=== PATIENT | female | born 1955 | race Caucasian/White ===

== ENCOUNTER 2017-03-19 16:03 | Inpatient (IN) | payer BC ==
[~2017-03-19] VITALS: Ht 180.3 cm; Wt 117.9 kg
[2017-03-19 17:45] LABS: PLATELET COUNT 291 x10^3mcL (130-400)
[2017-03-19 17:48] LABS: CALCIUM 8.4 mg/dL (8.5-10.1); CARBON DIOXIDE 25.5 mmol/L (21-32); CHLORIDE SERUM 108 mmol/L (98-107); CREATININE SERUM 0.9 mg/dL (0.6-1.0); GFR1 > 60 mL/min; GLUCOSE SERUM 87 mg/dL (74-106); POTASSIUM SERUM 4.6 mmol/L (3.5-5.1); SODIUM SERUM 141 mmol/L (136-145)
[2017-03-19 17:52] LABS: ALKALINE PHOSPHATASE 220 U/L (46-116); ALT/SGPT 15 U/L (14-59); AST/SGOT 16 U/L (15-37); BILIRUBIN TOTAL 0.2 mg/dL (0.20-1.00); TOTAL PROTEIN, SERUM 7.1 g/dL (6.4-8.2)
[2017-03-19 17:53] LABS: ALBUMIN 2.8 g/dL (3.4-5.0)
[2017-03-19 17:59] LABS: RED CELL DISTRIBUTION WIDTH 22.8 % (11.5-14.5)
[2017-03-19 18:53] LABS: BAND NEUTROPHIL 2 % (0-10); MONOCYTE 10 % (0-7); SEGMENTED NEUTROPHILS 58 % (37-75)
[2017-03-19 18:56] LABS: ovalocyte/elliptocyte 1+; rbc morphology (normal/abnorm) ABNORMAL (NORMAL)
[2017-03-19 18:57] LABS: PLATELET MORPHOLOGY PLATELETS NORMAL
[2017-03-19 19:23] LABS: T3 TOTAL 0.83 ng/mL
[2017-03-19 19:26] LABS: MAGNESIUM 2.2 mg/dL (1.8-2.4)
[2017-03-19 19:28] LABS: FREE T4 0.85 ng/dL (0.76-1.46); FREE THYROXINE INDEX 2.2 ug/dL (1.4-4.5); T4(THYROXINE) 6.6 ug/dL (4.7-13.3)
[2017-03-19 19:33] LABS: CHOLESTEROL/HDL RATIO 2.9
[2017-03-19 19:41] VITALS: BP 120/76
[2017-03-20 03:54] LABS: BASOPHIL % 1.5 % (0-2); PLATELET COUNT 261 x10^3mcL (130-400)
[2017-03-20 03:59] LABS: RED CELL DISTRIBUTION WIDTH 21.3 % (11.5-14.5)
[2017-03-20 04:17] LABS: CALCIUM 7.8 mg/dL (8.5-10.1); CARBON DIOXIDE 28.9 mmol/L (21-32); CREATININE SERUM 1.1 mg/dL (0.6-1.0); POTASSIUM SERUM 4.5 mmol/L (3.5-5.1)
[2017-03-20 05:31] VITALS: BP 80/35
[2017-03-20 06:06] VITALS: BP 81/40
[2017-03-20 06:45] LABS: microscopic required? NO
[2017-03-20 09:32] VITALS: BP 130/48
[2017-03-20 09:43] LABS: urine erythrocyte NEGATIVE (NEGATIVE)
[2017-03-20 13:35] VITALS: BP 113/65
[2017-03-20 17:12] VITALS: BP 106/46
[2017-03-20 21:31] VITALS: BP 104/41
[2017-03-21 05:33] VITALS: BP 103/50
[2017-03-21 06:11] LABS: BASOPHIL % 0.3 % (0-2); PLATELET COUNT 263 x10^3mcL (130-400)
[2017-03-21 06:29] LABS: RED CELL DISTRIBUTION WIDTH 22.8 % (11.5-14.5)
[2017-03-21 06:43] LABS: CALCIUM 8.2 mg/dL (8.5-10.1); CARBON DIOXIDE 25.2 mmol/L (21-32); CHLORIDE SERUM 109 mmol/L (98-107); CREATININE SERUM 0.9 mg/dL (0.6-1.0); GFR1 > 60 mL/min; GLUCOSE SERUM 77 mg/dL (74-106); POTASSIUM SERUM 4.5 mmol/L (3.5-5.1); SODIUM SERUM 139 mmol/L (136-145)
[2017-03-21 07:53] LABS: rbc morphology (normal/abnorm) ABNORMAL (NORMAL)
[2017-03-21 09:59] VITALS: BP 102/54
[2017-03-21] MEDS ORDERED: ZAN4 PO (12:01)
[2017-03-21 12:37] VITALS: BP 102/54
[2017-03-21] MEDS ORDERED: LOV40I SC (13:00)
[2017-03-21] MEDS ORDERED: NOR10T PO (13:13)
== END 2017-03-21 13:22 | disposition home or self-care (01) | DRG 300 ==
LOC: ED 16:03 → DU 17:42 → MU 03-21 06:43
PROVIDERS: Emergency Medicine; ADMIT Family Medicine
DX: I82.402 Acute embolism and thrombosis of unspecified deep veins of left lower extremity (principal); E44.0 Moderate protein-calorie malnutrition; E78.5 Hyperlipidemia, unspecified; D64.9 Anemia, unspecified; E87.8 Other disorders of electrolyte and fluid balance, not elsewhere classified; F32.9 Major depressive disorder, single episode, unspecified; G89.29 Other chronic pain; Z88.0 Allergy status to penicillin; Z88.2 Allergy status to sulfonamides
CPT/HCPCS: 83880; 84439; J1170; J1644; J2405; J7030; J7040; Q0092

== ENCOUNTER 2019-08-15 00:34 | Emergency (ER) | payer BC ==
[~2019-08-15] VITALS: Ht 180.3 cm; Wt 136.1 kg
[~2019-08-15 00:34] MED LIST: LOV40I SC; NOR10T PO; ZAN4 PO
[2019-08-15 00:56] VITALS: Ht 180.3 cm; Wt 136.1 kg
[2019-08-15 02:49] VITALS: BP 151/92
== END 2019-08-15 01:58 | disposition short-term general hospital (02) ==
LOC: ED 00:34
DX: I21.3 ST elevation (STEMI) myocardial infarction of unspecified site (principal); I21.9 Acute myocardial infarction, unspecified; I46.9 Cardiac arrest, cause unspecified; J45.909 Unspecified asthma, uncomplicated; Z88.0 Allergy status to penicillin; Z88.2 Allergy status to sulfonamides; Z88.1 Allergy status to other antibiotic agents; Z91.040 Latex allergy status; Z88.8 Allergy status to other drugs, medicaments and biological substances
CPT/HCPCS: 36600; G0480; J2310; J2997; J3490; J7030